=== PATIENT | female | born 1990 | race Caucasian/White ===

== ENCOUNTER 2018-09-20 06:01 | Day surgery (SDC) | payer OTHER | END 2018-09-20 17:00 | disposition home or self-care (01) | LOC: CIR.AMB 06:01 | DX: O02.1 Missed abortion (principal); Z3A.01 Less than 8 weeks gestation of pregnancy ==

== ENCOUNTER 2019-07-27 13:34 | Inpatient (IN) | payer OTHER ==
[~2019-07-27] VITALS: Ht 160 cm; Wt 77.6 kg
[2019-08-14] MEDS ORDERED: PRENATAL + DHA1 EAC1 PO (06:46)
== END 2019-08-16 12:40 | disposition home or self-care (01) | DRG 807 ==
LOC: OB/GYN 08-14 06:06 → LDR 08-14 06:06 → OB/GYN 08-14 13:45 → O/R 08-14 13:45 → OB/GYN 08-14 18:48
PROVIDERS: ADMIT Obstetrics & Gynecology
PROC: 4A1HXFZ Monitoring of Products of Conception, Cardiac Rhythm, External Approach (ICD-10-PCS; principal; 2019-08-14)
PROC: 10E0XZZ Delivery of Products of Conception, External Approach (ICD-10-PCS; 2019-08-14)
PROC: 3E033VJ Introduction of Other Hormone into Peripheral Vein, Percutaneous Approach (ICD-10-PCS; 2019-08-14)
DX: O80 Encounter for full-term uncomplicated delivery (principal); Z37.0 Single live birth; Z3A.40 40 weeks gestation of pregnancy